=== PATIENT | female | born 1935 | race Caucasian/White ===

== ENCOUNTER → 2018-03-10 | Outpatient (CLI) | payer OTHER, BC ==
[~2018-03-10] VITALS: Ht 154.9 cm; Wt 63.0 kg
[~2018-03-10] MED LIST: CALCIUM 600 +1 EAC1 PO; COZAAR 50 MG TA50 M2 PO; FISH OIL 1,001000 M2 PO; HYDROCODONE-AP1 EAC6 PO; MOBIC7.5 MG PO; PROTONIX40 M1 PO; WOMEN'S DAILY1 EACH PO; ZOCOR20 MG PO
--- NOTE | ~2018-03-10 | HPC ---
[facility] [place] [address] PAIN MANAGEMENT CONSULTATION Name: RAHEL DELGADO Room #: REG [facility] Jennifer.#: [id number] Admission: 03/10/18 Attend Phys: Rogelio Ornelas DO Discharge: Date of : 35 Report #: [id number] THIS REPORT FOR: //name// CC: Jim Ornelas The patient is a very pleasant 82-year-old female, seen in consultation at the request of Dr. Bass for assistance with management of pain in the neck, right shoulder and arm. The patient notes she has had similar symptoms greater than a decade ago, well treated with cervical epidural injections. She notes current symptoms began earlier this year without antecedent trauma and overuse. She describes pain in the neck, right shoulder and arm, paresthesia in the right hand along with weakness. She notes pain in the hand has been continuous. She describes a cramping, aching, throbbing, sharp pain that she rates anywhere from 8-10 on a VAS. The patient has been taking Motrin [id number] and hydrocodone for pain with some efficacy. She notes anything involving using her hands exacerbates pain. She denies any myelopathic symptoms. REVIEW OF SYSTEMS: Complete review of systems was attached to the chart and gone over with the patient. She is . Does not smoke or drink alcohol to excess. The patient has some gastroesophageal reflux for which she takes Protonix. Dyslipidemia for which she takes Zocor. Hypertension for which she takes Cozaar. Otherwise, a 12-point review of systems is noncontributory. SURGICAL HISTORY: Includes bilateral total knee arthroplasties, appendectomy, an acoustic neuroma and a lumbar laminectomy greater than a decade ago. She has been retired since 2001. Pain impact score is 41/70. PHYSICAL EXAMINATION: Reveals a 5 feet 1 inch, 139 pounds female, in moderate distress. Subjective pain score is 8 on a VAS. Blood pressure is modestly elevated at 149/81, pulse 85, respirations 16. Cranial nerves 2-12 are grossly intact. Pupils are equal and reactive to light and accommodation. Extraocular muscles are intact. Cervical range of motion is limited with a grossly positive Lhermitte's radiating into the right shoulder and arm. Upper extremity strength is about 3-4/5 and generally symmetric. Hand grasp is modestly diminished on the right compared to the left. Right biceps and brachioradialis tendon reflexes are diminished compared to the left. Heart is regular and rhythmical without murmur. Lungs are clear to auscultation. Abdomen is benign. Rises from chair using armrest. Gait is tandem. Skin integument is intact. [facility] [address] [place] [address] PAIN MANAGEMENT CONSULTATION Name: RAHEL DELGADO Room #: REG [facility] Lopez#: [id number] Admission: 03/10/18 Attend Phys: Rogelio Ornelas DO Discharge: Date of : 35 Report #: [id number] DIAGNOSTIC STUDIES: Include MRI of the cervical spine from 03/06/2018 noting a right greater than left facet arthropathy at C3-C4, bilateral facet arthropathy at C4-C5, right greater than left facet arthropathy causing some CSF effacement at C5-C6. ASSESSMENT: Symptomatic cervical radiculopathy by clinical exam and history. RECOMMENDATIONS: 1. We will start the patient on meloxicam 7.5 b.i.d. 2. Cervical epidural injection under fluoroscopy today. 3. Follow up in 3 weeks for reevaluation. Consideration for repeat injection if indicated clinically. Thank you for allowing me to participate in the patient's care. We will keep you abreast of her progress. PROCEDURE: Cervical epidural injection under fluoroscopy. PROCEDURE NOTE: After written and informed consent was obtained including risk of dural puncture, spinal cord trauma, paralysis and increased pain, the patient was taken to the fluoroscopy suite and placed in the prone position, with appropriate abdominal bolstering, neck was flexed, palms under the thighs. Skin was prepped with ChloraPrep. Sterile draping was applied. Skin wheal with 1% Xylocaine was raised. A 22-gauge 3-1/2 inch epidural Tuohy needle was placed via a midline approach at the C7-T1 interspace, advanced under biplanar fluoroscopy using continuous loss of resistance. With appropriate loss of resistance at the expected depth on lateral view, the glass loss of resistance syringe was disconnected. A low volume extension tubing was connected to the needle and a 5 mL syringe. Negative aspiration for cerebrospinal fluid or blood was noted. A 1 mL of Omnipaque was injected which showed spread within the epidural space on biplanar fluoroscopy. This was followed with 80 mg of triamcinolone plus 1 mL of 1.5% preservative Xylocaine. Needle was withdrawn to the interspinous ligament, 0.5 mL of Xylocaine was used to flush the needle. The needle was then completely withdrawn. The area was cleansed. Band-Aid was applied. The patient was allowed to move off the procedure table and ambulated to the recovery room, monitored for an appropriate period of time, discharged in good and stable condition. <ELECTRONICALLY SIGNED> By: Rogelio Ornelas DO 03/12/18 0734 [id number] Rogelio Ornelas DO /abram
[2018-03-10 09:19] VITALS: BP 149/81
== END | disposition home or self-care (01) ==
LOC: PAIN 07:53
DX: M54.12 Radiculopathy, cervical region (principal); I10 Essential (primary) hypertension; E78.5 Hyperlipidemia, unspecified; K21.9 Gastro-esophageal reflux disease without esophagitis; Z96.653 Presence of artificial knee joint, bilateral; Z98.890 Other specified postprocedural states; Z90.710 Acquired absence of both cervix and uterus; Z79.899 Other long term (current) drug therapy; Z88.2 Allergy status to sulfonamides; Z88.8 Allergy status to other drugs, medicaments and biological substances

== ENCOUNTER → 2018-03-31 | Outpatient (CLI) | payer OTHER, BC ==
[~2018-03-31] VITALS: Ht 154.9 cm; Wt 63.5 kg
--- NOTE | ~2018-03-31 | HPC ---
[facility] [place] [address] PAIN MANAGEMENT CONSULTATION Name: RAHEL DELGADO [facility] [id number] Admission: 03/31/18 Attend Phys: Aries Valdez MD Discharge: Date of : 35 Report #: [id number] THIS REPORT FOR: //name// CC: Aries Bass DATE OF SERVICE: 03/31/2018 Followup visit for cervical radiculopathy. The patient saw Dr. Ornelas on 03/10/2018 for a cervical epidural injection. She is 90% improved, which has been sustained now for [address] Ornelas also initiated meloxicam therapy discontinuing all other nonsteroidal anti-inflammatory drugs. 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 I spent some time with her discussing nonsteroidal anti-inflammatory drugs, risks and benefits, made sure that she is only taking one at a time and she will take it on an as needed basis, taking some holidays if her pain is doing well. Long-term use can be a concern as we have discussed and she understands the GI, renal and cardiac side effects. She does have a history of gastritis and takes Protonix. PQRS review is completed. Once again, she is not a fall risk. She is on no opioid medication. Her pain score is 1/10. Arthritis is noted in the hands and in the spine as well as knees where she has had bilateral knee replacement. PHYSICAL EXAMINATION: VITAL SIGNS: Blood pressure 164/80, heart rate 84, respirations 16. BMI 26.5. GENERAL: She is pleasant, alert and oriented with good cognition. IMPRESSION: Cervical radiculopathy, much improved following cervical epidural injection by Dr. Ornelas. RECOMMENDATIONS: Follow up on an as needed basis for injections in the future. No scheduled appointments at this time. By: [id number] Aries Valdez MD /nt
[2018-03-31 09:35] VITALS: BP 164/80
== END ==
LOC: PAIN 06:23
DX: M54.12 Radiculopathy, cervical region (principal); Z79.899 Other long term (current) drug therapy

== ENCOUNTER → 2018-08-20 | Outpatient (CLI) | payer OTHER, BC ==
[~2018-08-20] VITALS: Ht 154.9 cm; Wt 63.9 kg
--- NOTE | ~2018-08-20 | HPC ---
[facility] [place] [address] PAIN MANAGEMENT CONSULTATION Name: RAHEL DELGADO Room #: REG [facility].#: [id number] Admission: 08/20/18 Attend Phys: Best Ornelas DO Discharge: Date of : 35 Report #: [id number] THIS REPORT FOR: //name// CC: Jeff Zuñiga DATE OF SERVICE: 08/20/2018 REFERRING PHYSICIAN: Jeff Nance D.O. CHIEF COMPLAINT: Low back pain and left lower extremity pain with paresthesias. HISTORY OF PRESENT ILLNESS: As you know, the patient is an 83-year-old female initially followed by [facility] for cervical radiculopathy. The patient has been referred to our clinic once again, but this time to address low back pain and left lower extremity pain with paresthesias. She states her pain is constant, intermittent, cramping, sharp, aching, throbbing, numbness and tingling. Places her current pain score 5-6/10 and states the pain is exacerbated with walking and standing, improves with nothing to date. She has been trialled on a Medrol Dosepak, but it was ineffective. She has also undergone physical therapy, which is also ineffective for treating her symptoms. Due to lack of improvement with conservative options, the patient was referred to our clinic to trial an epidural injection under fluoroscopic guidance to determine if her symptoms may improve. She has undergone recent MRI imaging, which shows a grade 1 anterolisthesis of L5 on S1 with severe central canal stenosis at this level as well as severe bilateral neural foraminal stenosis. She has been referred to our clinic to trial an epidural injection and determine if her symptoms might improve. ALLERGIES: SULFA, CLINDAMYCIN and AMOXICILLIN. CURRENT MEDICATIONS: Meloxicam 7.5 mg twice a day, hydrocodone/acetaminophen 5/325 one tab every 6 hours p.r.n. for pain, multivitamin 1 tab per day, omega-3 fish oil 1 tab per day, calcium carbonate 1 tab per day, losartan 50 mg per day, simvastatin 20 mg per day and pantoprazole 40 mg per day. SOCIAL HISTORY: The patient reports herself a nonsmoker. She denies IV or illicit drug use. Denies any chronic alcohol use. She is unaccompanied today. IMAGING DATA: MRI lumbar spine obtained on 08/08/2018 shows multilevel degenerative disk disease, facet arthropathy resulting in spinal stenosis, most severe at the L5-S1 level. Also noted severe bilateral neural foraminal stenosis at the same level. PQRS: The patient has osteoarthritic changes of the low back, bilateral hips [address] [address] PAIN MANAGEMENT CONSULTATION Name: RAHEL DELGADO Room #: REG [facility] Lopez#: [id number] Admission: 08/20/18 Attend Phys: Best Ornelas DO Discharge: Date of : 35 Report #: [id number] and bilateral hands. No rheumatoid arthritis. She is placing pain intensity today at 5-6/10. She is not a fall risk, has not had fall in the last 3 months. She is not on blood thinners. She is treated for hypertension. She is on opioids but not for greater than 6 weeks. She has a low assessment tool for opioid addiction. Pain impact 41/70 indicating [id number] interference of daily activities secondary to pain. PHYSICAL EXAMINATION: VITAL SIGNS: Blood pressure 153/75, pulse 86 and respiratory rate 16 and unlabored. The patient is 96% on room air. Height 5 feet 1 inch tall, weight 140.8 pounds and BMI calculated 26.6. GENERAL: Well-developed, well-nourished and well-hydrated 83-year-old female appearing stated age, placing current pain score 5-6/10. HEENT: Normocephalic and atraumatic. Pupils equal, round and reactive to light. Extraocular muscles are intact. Speech is fluent. EXTREMITIES: Show no clubbing, no cyanosis and no edema. MUSCULOSKELETAL: Gait is antalgic and stance is slightly forward flexed, lumbar spine. Ankle clonus negative. Babinski is negative. Seated straight leg raising positive. Supine straight leg raising positive. Kirsten's test negative. Modified Gaenslen's positive for axial low back pain. Lumbar provocation testing including extension, rotation, lateral flexion all intensify axial back pain. ASSESSMENT: 1. Symptomatic lumbar radiculopathy. 2. Severe and progressively worsening spinal stenosis of the lumbar spine. 3. Displacement of the lumbar intervertebral disk with radiculopathy. 4. Lumbosacral spondylosis with radiculopathy. 5. Neural foraminal stenosis of the lumbar spine. 6. Facet arthropathy of the lumbar spine. 7. Lumbar degeneration. 8. Chronic intractable pain. PLAN: 1. The patient returns today in followup visit where we have reviewed recent MRI with the patient in its entirety. We took 22 minutes of time to review the patient's MRI and describe the findings therein and how they correlate with current symptoms. It does appear the symptoms, the patient is experiencing, are related to the severe spinal stenosis at the L5-S1 level. After discussing the findings of the MRI and how they correlate to her symptoms, we then discussed treatment options and following was discussed. 2. We discussed with the patient today treatment options, which would include physical therapy, stretching exercise, core strengthening and a concerted effort at weight loss if at all possible. We discussed medication management with the addition of a neuropathic pain medication and a consistent nonsteroidal anti-inflammatory. We discussed epidural injections for which the patient was [facility] [address] [place] [address] PAIN MANAGEMENT CONSULTATION Name: RAHEL DELGADO [facility] [id number] Admission: 08/20/18 Attend Phys: Best Ornelas DO Discharge: Date of : 35 Report #: [id number] referred to our clinic. We also discussed surgical options. After reviewing the risks and benefits of all the proposed treatment options, the patient chose to move forward with a lumbar epidural injection under fluoroscopic guidance. 3. The patient was advised risks and benefits of a lumbar epidural injection. These risks include but are not necessarily limited to bleeding, bruising, infection, worsening pain, no relief of pain, also risk of temporary or permanent muscle weakness, temporary or permanent nerve damage, possible paralysis, post-dural puncture headache and . The patient states understood and wished to proceed. 4. No medication changes were made at today's visit. The patient will continue current medical therapy as previously prescribed. 5. We will see the patient back in followup visit on an as needed basis for the next in the series of epidural injections and discuss further treatment options if necessary. 6. We wish to thank Dr. Nance for the re-referral of the patient to our clinic to address her low back symptoms. We are pleased to see she is doing well from a cervical radiculopathy standpoint and will keep you apprised of her treatment for lumbar radicular symptoms secondary to severe spinal stenosis. PROCEDURE NOTE DESCRIPTION OF PROCEDURE: L5-S1 interlaminar epidural steroid injection under fluoroscopic guidance. This is the first procedure of the first series that the patient is undergoing. After obtaining written consent, the patient was taken back to the fluoroscopy suite, placed in a prone position with pillow under the abdomen to decrease lumbar lordosis. The skin overlying the lumbosacral area was then prepped and draped in aseptic fashion. The L5-S1 vertebral interspace was then identified by AP fluoroscopy. The skin and subcutaneous tissue overlying the target site of injection was anesthetized with 3 mL 1% lidocaine. A 20-gauge 3-1/2 inch Tuohy needle was then advanced under fluoroscopic guidance towards the epidural space using a right paramedian approach. The epidural space was identified using loss of resistance to air technique. After negative aspiration for heme or cerebrospinal fluid, a total of 0.4 mL of Omnipaque was injected. A lumbar epidurogram was confirmed using both AP and lateral fluoroscopy. After negative aspiration for heme or cerebrospinal fluid, 3 mL of a solution containing 2 mL 40 mg per mL, 80 mg total triamcinolone, 1 mL of lidocaine 1% was injected in increments. Contrast spread was noted posterior epidural space. The needle was then retracted approximately half way and needle tract flushed with 1 mL of 1% lidocaine. Needle was then removed. There were no apparent sensory or motor deficits in the lower extremity following the procedure. A sterile bandage was placed over the injection site. [address] [address] PAIN MANAGEMENT CONSULTATION Name: RAHEL DELGADO Room #: REG [facility] John#: [id number] Admission: 08/20/18 Attend Phys: Best Ornelas DO Discharge: Date of : 35 Report #: [id number] The heart rate, pulse, oximetry and blood pressure were continuously monitored after the procedure. There were no apparent complications. The patient tolerated the procedure well and was carefully escorted to the recovery room in stable condition. There were no apparent complications. After meeting discharge criteria, the patient was then discharged home. <ELECTRONICALLY SIGNED> By: Best Ornelas DO 08/27/18817 0724 Best Ornelas DO /nt
[2018-08-20 11:10] VITALS: BP 153/75
== END | disposition home or self-care (01) ==
LOC: PAIN 10:23
DX: M51.16 Intervertebral disc disorders with radiculopathy, lumbar region (principal); M48.061 Spinal stenosis, lumbar region without neurogenic claudication; M47.27 Other spondylosis with radiculopathy, lumbosacral region; M46.96 Unspecified inflammatory spondylopathy, lumbar region; G89.29 Other chronic pain; Z88.2 Allergy status to sulfonamides; Z88.8 Allergy status to other drugs, medicaments and biological substances; Z79.899 Other long term (current) drug therapy; Z98.890 Other specified postprocedural states

== ENCOUNTER → 2018-09-23 | Outpatient (CLI) | payer OTHER, BC ==
[~2018-09-23] VITALS: Ht 154.9 cm; Wt 63.9 kg
--- NOTE | ~2018-09-23 | HPC ---
[facility] [place] [address] PAIN MANAGEMENT CONSULTATION Name: RAHEL DELGADO Room #: REG [facility].#: [id number] Admission: 09/23/18 Attend Phys: Best Ornelas DO Discharge: Date of : 35 Report #: [id number] THIS REPORT FOR: //name// CC: Jeff Nance DO Best Bass DATE OF SERVICE: 09/23/2018 CHIEF COMPLAINT: Low back pain, left lower extremity pain and paresthesias. HISTORY OF PRESENT ILLNESS: As you know, the patient is a very pleasant 83-year-old female who returns today in followup visit to undergo next in the series of lumbar epidural injections under fluoroscopic guidance to address lumbar radicular symptoms. The patient underwent a lumbar epidural injection at our last visit, for which she reports 50% improvement in overall pain. This improvement in symptoms is despite the fact that she provides a pain level of 6-7/10 today. She states pain is constant, sharp, aching, numbness when describing symptoms. She returns today in followup visit to undergo next in the series of lumbar epidural injections to address lumbar radicular symptoms. ALLERGIES: SULFA, CLINDAMYCIN, AMOXICILLIN. CURRENT MEDICATIONS: Meloxicam, hydrocodone, multivitamin, omega 3 fish oil, calcium carbonate, losartan, simvastatin, pantoprazole. SOCIAL HISTORY: The patient reports herself as a nonsmoker. Denies IV or illicit drug use. Denies any chronic alcohol use. Unaccompanied today. IMAGING: No new imaging available. PQRS: The patient has arthritic changes in the low lumbar spine, bilateral hips, bilateral hands. No rheumatoid arthritis. She is placing pain intensity today 6-7/10. She is not a fall risk, has not had a fall in the last 3 months. She is not on blood thinners, but is treated for hypertension. She is not on chronic opioids. She has a low opioid addiction potential. She is placing pain impact score at 41/70, moderate interference of daily activities secondary to pain. PHYSICAL EXAMINATION: VITAL SIGNS: Blood pressure 144/70, pulse 72, respiratory rate 18 and unlabored. The patient is 97% on room air. Height 5 feet 1 inch tall, weight 140.8 pounds, BMI calculated 26.6. GENERAL: Well-developed, well-nourished, well-hydrated 83-year-old female appearing stated age, placing current pain score 6-7/10. HEENT: Normocephalic, atraumatic. Pupils equal, round, [place] [address] PAIN MANAGEMENT CONSULTATION Name: RAHEL DELGADO Room #: REG [facility].#: [id number] Admission: 09/23/18 Attend Phys: Best Ornelas DO Discharge: Date of : 35 Report #: [id number] EXTREMITIES: Show no clubbing, no cyanosis, no edema. MUSCULOSKELETAL: Gait remains antalgic favoring the left lower extremity to right. Ankle clonus negative. Babinski is negative. Seated straight leg raising negative. Supine straight leg raising positive on the left. ASSESSMENT: 1. Symptomatic lumbar radiculopathy. 2. Progressively worsening spinal stenosis along the lumbar spine. 3. Displacement of lumbar intervertebral disk with radiculopathy. 4. Lumbosacral spondylosis with radiculopathy. 5. Neural foraminal stenosis of lumbar spine. 6. Facet arthropathy of the lumbar spine. 7. Lumbar degeneration. 8. Chronic intractable pain. PLAN: 1. The patient returns today in followup visit, having noted 50% improvement in overall pain with the epidural injection provided at our last visit. The patient has returned to undergo next in the series in hopes of building on success of previous intervention. The patient was advised risks and benefits of this procedure, which include but are not necessarily limited to bleeding, bruising, infection, worsening pain, no relief of pain, also risk of temporary or permanent muscle weakness, temporary or permanent nerve damage, possible paralysis and . The patient states understood and wished to proceed. 2. No medication changes made at today's visit. The patient to continue current medical therapy as previously prescribed. 3. We will see the patient back in followup visit on an as-needed basis for next in the series of epidural injections. PROCEDURE NOTE DESCRIPTION OF PROCEDURE: L5-S1 interlaminar epidural steroid injection under fluoroscopic guidance. This is the second procedure of the first series that the patient is undergoing. After obtaining written consent, the patient was taken back to the fluoroscopy suite, placed in a prone position with pillow under the abdomen to decrease lumbar lordosis. The skin overlying the lumbosacral area was then prepped and draped in aseptic fashion. The L5-S1 vertebral interspace was then identified by AP fluoroscopy. The skin and subcutaneous tissue overlying the target site of injection was anesthetized with 3 mL 1% lidocaine. A 20-gauge 3-1/2 inch Tuohy needle was then advanced under fluoroscopic guidance towards the epidural space using a paramedian approach. The epidural space was identified using loss of resistance to air technique. After negative aspiration [address] [address] PAIN MANAGEMENT CONSULTATION Name: RAHEL DELGADO Room #: REG [facility] Lopez#: [id number] Admission: 09/23/18 Attend Phys: Best Ornelas DO Discharge: Date of : 35 Report #: [id number] for heme or cerebrospinal fluid, a total of 1 mL of Omnipaque was injected. A lumbar epidurogram was confirmed using both AP and lateral fluoroscopy. After negative aspiration for heme or cerebrospinal fluid, 5 mL of a solution containing 2 mL 40 mg per mL, 80 mg total triamcinolone, 3 mL of lidocaine 1% was injected in increments. Contrast spread was noted posterior epidural space. The needle was then retracted approximately half way and needle tract flushed with 1 mL of 1% lidocaine. Needle was then removed. There were no apparent sensory or motor deficits in the lower extremity following the procedure. A sterile bandage was placed over the injection site. The heart rate, pulse, oximetry and blood pressure were continuously monitored after the procedure. There were no apparent complications. The patient tolerated the procedure well and was carefully escorted to the recovery room in stable condition. There were no apparent complications. After meeting discharge criteria, the patient was then discharged home. By: [id number] Best Ornelas DO /nt
[2018-09-23 08:12] VITALS: BP 144/70
--- NOTE | 2018-09-23 08:20 | NUR ---
Pain Clinic Assessment: 1. History of Osteoarthritis: History of Rheumatoid Arthritis: 2. Height: 5 ft. 1 in. 154.9 cm. Weight: 140.8 lb. oz. 63.866 kg. Patient's BMI: 26.6 3. Vital Signs: BP: 144/70 Pulse: 72 Resp: 18 Temp: 02 Sat: 97 ECG Mon: 4. Pain Intensity: 6-7 5. Fall Risk: Dizziness: N Needs help standing or walking: N Fallen in the last 3 months: N Fall risk comments: 6. Patient on Blood Thinner: None 7. History of Hypertension: Y 8. Opioid Therapy greater than 6 weeks: N Opiate Contract Signed: 9. Risk Assessment Tool Provided: LOW 10. Functional Assessment Tool: 11. Recreational Drug Use: Never Drug Type: Tobacco Use: Never Smoker Tobacco Type: Amount or Packs/day: How Many Years: Alcohol Use: Yes Frequency: Monthly Quant: 3-4 TIMES A MONTH
== END | disposition home or self-care (01) ==
LOC: PAIN 06:43
DX: M51.16 Intervertebral disc disorders with radiculopathy, lumbar region (principal); M48.061 Spinal stenosis, lumbar region without neurogenic claudication; M47.27 Other spondylosis with radiculopathy, lumbosacral region; M46.96 Unspecified inflammatory spondylopathy, lumbar region; G89.29 Other chronic pain; I10 Essential (primary) hypertension; M19.90 Unspecified osteoarthritis, unspecified site; Z88.2 Allergy status to sulfonamides; Z79.899 Other long term (current) drug therapy; Z79.891 Long term (current) use of opiate analgesic; Z98.890 Other specified postprocedural states